=== PATIENT | female | born 1955 | race Caucasian/White ===

== ENCOUNTER 2016-11-11 14:53 | Inpatient (IN) | payer OTHER ==
[2016-11-11] VITALS (9 sets, daily range): BP systolic 105–144; BP diastolic 59–79; PULSE 51–83; RESP 12–18; O2SAT 100
[~2016-11-11] VITALS: Ht 170.2 cm; Wt 106.6 kg
[2016-11-11 16:11] LABS: APPEARANCE,URINE CLEAR (CLEAR,HAZY); COLOR,URINE STRAW (YELLOW)
[2016-11-11 16:12] LABS: OCCULT BLOOD,URINE NEGATIVE (NEGATIVE); PH,URINE 5.5 (5.0-8.0); UROBILINOGEN,URINE NORMAL (NORMAL)
[2016-11-11 17:04] LABS: BASOPHILS % (AUTO) 0.8 % (0-3); EOSINOPHILS % (AUTO) 0.8 % (0-5); MONOCYTES % (AUTO) 7.8 % (4-12); Mean Corpuscular Hemoglobin 17.5 pg (27.0-35.0); NEUTROPHILS % (AUTO) 65.9 % (40-74); Platelet Count 449 bil/L (150-400)
[2016-11-11 17:08] LABS: INR 0.95 ratio
[2016-11-11] MEDS ORDERED: LidocaineVisc 2%:Antacid 1:1 10 mL Syringe PO ONE (17:10)
[2016-11-11] MEDS ORDERED: 0.9% Sodium Chloride 250 ML IV STA (17:14)
[2016-11-11] MEDS ORDERED: Alum-Mag Hydrox-Simeth 30 mL Suspension PO PRN (17:15)
[2016-11-11] MEDS ORDERED: Ondansetron 2 mg/mL 2 mL Inj IVPUSH PRN ×2 (17:15→19:45)
[2016-11-11] MEDS ORDERED: Pantoprazole Inj 80 MG, Pharmacy To Mix 1 EA in 0.9% Sodium Chloride 80 ML IV ONE ×2 (17:25)
[2016-11-11] MEDS ORDERED: Pantoprazole 4 mg/mL 10 mL Inj IVPUSH ONE (17:25)
--- NOTE | 2016-11-11 17:29 | ED.REPORT ---
HPI-General Illness Date of Service Nov 11, 2016 ED Provider: Eliseo Nguyễn MD Patient is a 61 year old female who presents to the ED complaining of intermittent epigastric abdominal pain for the past 8 months. She also complains of feeling fatigued, having increased stress, constipation, one bowel movement that was black/tarry and pain that radiates into her back. Patient denies hematochezia or lightheadedness. She states that her pain is sharp and burning that is occasionally brought on by eating and stress. Patient reports that she has been taking Advil for her chronic back pain but has not increased her dose and she does not take it daily. The patient reports that she has been seen at and was started on Pantoprazole but her hemoglobin has dropped from 6.8 to 5.3 (three days ago). She also had an abdominal ultrasound that was unremarkable. Nursing Notes Stated Complaint: LAB RESULTS/SENT FROM DOC Chief Complaint: General Complaint Nursing Notes Reviewed: Yes Allergies: Coded Allergies: latex (Verified Allergy, Severe, WELTS, RASH, 11/11/16) Penicillins (Verified Allergy, Mild, MILD RASH, 11/11/16) Scheduled Cholecalciferol (Vitamin D3) (Vitamin D3) 2,000 Unit Tablet 2,000 UNIT PO QAM Mv,Ca,Min/FA/Herbal Comp #223 ([place] Mood & Memory Caplet) 400 Mcg Tablet 400 MCG PO QAM [place]-3/Dha/Epa/Fish Oil (Fish Oil 1,000 mg Softgel) 1 Each Capsule 1 EACH PO QAM Pantoprazole DR (Pantoprazole DR) 40 Mg Tablet.dr 40 MG PO BIDWM Scheduled PRN Ibuprofen (Ibuprofen) 200 Mg Capsule 400 MG PO DAILY PRN PRN BACK PAIN Loratadine (Claritin) 10 Mg Capsule 10 MG PO DAILY PRN PRN ALLERGIES General Time Seen by MD: 16:08 Chief Complaint Abdominal pain Hx Obtained From: Patient Arrived By: Walk-in Sudden in Onset?: No Onset Occurred: More than a week ago... (>6 months) Symptom Duration: Intermittent Location: : Abdomen Quality: Burning, Painful Recent Healthcare: Recent doctor visit Similar Sx Previous: Yes Past Medical History Past Medical History chronic back pain Smoking History Unknown if Ever Smoker Social History Other Social History: Good social support Ambulatory Status Independent Review of Systems Full Review of Systems Constitutional: Reports: Fatigue, Denies: Chills GI: Reports: Abdominal pain, Bloody/tarry stool, Constipation, Denies: Diarrhea, Hematochezia, Vomiting Musculoskeletal: Reports: Back pain Neurologic: Denies: Lightheaded Psychiatric: Reports: Stress Complete sys rev & neg: except as marked. Physical Exam Vital Signs Vital Signs Date Time Temp Pulse Resp B/P Pulse Ox O2 Delivery O2 Flow Rate FiO2 11/11/16 15:03 37.4 83 12 144/76 100 Room Air Initial VS: Reviewed General/Constitutional: Awake, Alert, No acute distress Head / Eyes: Atraumatic, Normocephalic, PERRL, EOMI mildly pale conjunctiva Respiratory / Chest: Atraumatic, Breath sounds NL, Breath sounds = bilat, No respiratory distress Cardiovascular: Heart rate NL, Regular rhythm, Heart sounds NL, No gallop, No murmurs, No rubs Abdomen: Atraumatic, Soft, Non-tender, No distention Lower Extremity / Pelvis / MS: Atraumatic, Full range of motion, No swelling, Non-tender Skin: Atraumatic, Color NL, No rash, Warm, Dry Rectum / Perineum: No gross blood normal brown stool present in rectal vault guaiac positive Neurologic: Oriented X3, Speech NL Psychiatric: Affect NL, Mood NL Interpretation & Diagnostics Lab Results Interpretation Result Diagram: 11/11/16 2255 11/11/16 1640 Test 11/11/16 15:55 11/11/16 16:40 11/11/16 17:01 Urine Color Straw (YELLOW) Urine Appearance Clear (CLEAR,HAZY) Urine pH 5.5 (5.0-8.0) Urine Specific [place] 1.010 (1.003-1.035) Urine Protein Negativemg/dL (NEG,TRACE) Urine Glucose (UA) Negativemg/dL (NEGATIVE) Urine Ketones Negativemg/dL (NEGATIVE) Urine Occult Blood Negative (NEGATIVE) Urine Nitrite Negative (NEGATIVE) Urine Bilirubin Negative (NEGATIVE) Urine Urobilinogen Normalmg/dL (NORMAL) Urine Leukocyte Esterase Small (NEGATIVE) Urine RBC 0-2/hpf (0-2) Urine WBC 0-5/hpf (0-5) Urine Epithelial Cells Few/hpf (NONE-MOD) Urine Crystals None seen (NONE SEEN) Urine Bacteria Few/hpf (NONE-FEW) Urine Hyaline Casts None/lpf (NONE) Urine Granular Casts None seen (NONE SEEN) Urine Waxy Casts None seen (NONE SEEN) Urine Red Blood Cell Casts None seen (NONE SEEN) Urine White Blood Cell Casts None seen (NONE SEEN) Urine Mucus None seen (None Seen) Urine Trichomonas None seen (NONE SEEN) Urine Yeast None (NONE SEEN) Urinalysis Comment None Urine Culture Reflexed Indicated Neutrophils (%) (Auto) 65.9% (40-74) Lymphocytes (%) (Auto) 24.5% (14-46) Monocytes (%) (Auto) 7.8% (4-12) Eosinophils (%) (Auto) 0.8% (0-5) Basophils (%) (Auto) 0.8% (0-3) Prothrombin Time 10.2sec (8.1-12.5) Prothromb Time International Ratio 0.95ratio Activated Partial Thromboplast Time 21.7sec (22.8-33.0) Sodium Level 136mEq/L (134-144) Potassium Level 4.4mEq/L (3.5-5.2) Chloride Level 102mEq/L (97-108) Carbon Dioxide Level 22mmol/L (18-29) Blood Urea Nitrogen 19mg/dL (8-27) Creatinine 0.51mg/dL (0.57-1.00) Estimat Glomerular Filtration Rate 176mL/min (>59) Glucose Level 98mg/dL (60-99) Calcium Level 9.0mg/dL (8.5-10.1) Total Bilirubin 0.2mg/dL (0.0-1.2) Aspartate Amino Transf (AST/SGOT) 14U/L (0-50) Alanine Aminotransferase (ALT/SGPT) 12U/L (0-32) Alkaline Phosphatase 65U/L (25-165) Troponin T < 0.010ug/L (0.0-0.011) Total Protein 6.9g/dL (6.4-8.4) Albumin 4.0g/dL (3.4-5.0) Hold [place] Top Tube Received (Received) Re-Eval/Medical Decision Med Decision/Clinical Course Summary, the patient is a 61-year-old female with chronic back pain for which she takes NSAIDs presents to the emergency department with declining hemoglobin level in the setting of burning epigastric abdominal pain and one "black tarry" stool several days ago. Upon arrival in the emergency department the patient is afebrile hemodynamically stable but she appears pale. Rectal examination reveals firm/ brown stool that is guaiac positive. She was noted to have tenderness in the epigastrium. The patient's presentation was concerning for bleeding gastric ulcer or duodenal ulcer. 2 large-bore IVs were obtained and blood was sent for type and screen. She was treated with a GI cocktail. Laboratory studies were notable as below: CBC notable for a hemoglobin of 5.2, hematocrit of 19.6, both decreased from prior CMP unremarkable Coag studies are normal Urinalysis unconvincing for UTI At this time patient has no peritoneal findings on abdominal examination and I do not feel that any imaging studies are immediately indicated to look for an acute surgical process or perforated ulcer. I highly suspect the patient's bleeding is related to upper GI source and likely peptic ulcer disease. She was started on pantoprazole bolus and infusion. She initially refused but transfusion though after further discussion she consented to receive 2 units of PRBCs. She remained hemodynamically stable in the emergency department. I consult the GI who evaluated the patient at the bedside. She will be taken for endoscopy later tonight or tomorrow morning. She was discussed with the hospitalist accepted for further management. Time of Eval: 17:26 Re-Evaluation/Progress Note: Discussed results and plan for admit. Patient understands and agrees to plan. She is currently refusing a blood transfusion. All questions were addressed. Consultation #1: Referral / Consult Name: Carlitos Chung MD Consulted With: On-call physician (GI) Call Returned at: 17:20 Head Of Academic Technology: Will see patient, Agrees with eval, Agrees with plan Note: Consult with Dr. Chung, who recommends infusion and will consult Consultation #2: Referral / Consult Name: Bess Dixon MD Consulted With: Hospitalist Call Returned at: 17:34 Head Of Academic Technology: Agrees with eval, Agrees with plan, Accepts admit Counseled Regarding: Diagnosis, Lab results, Need for admission Discharge & Departure Primary Impression: Upper GI bleed Additional Impressions: Epigastric pain Severe anemia Bloody stool NSAID long-term use Transfusion of blood during current hospitalization Disposition: ADMITTED TO HOSPITAL Discharge Condition All VS Reviewed: Yes Condition: Stable Referrals: NOPCP (PCP) Crit Care Except Billable Proc Time Spent: 75-104 minutes Services Performed: Patient management by me, Time spent at bedside, Reviewing test results, Discussing patient care, Documentation in record Critical Care Notes: Arranging blood transfusion, discussions with GI, discussions with patient/hospitalist, management of significant upper GI bleed Scribkarishma Attestation Portions of this note were transcribed by Jolanta Valderrama. I, Dr. Nguyễn personally performed the history, physical exam and medical decision-making; I reviewed and confirmed the accuracy of the information in the transcribed note. Signed by: Pierre Hernandez, 11/11/16 Eliseo Nguyễn MD Nov 11, 2016 17:29 Marianela Valderrama Nov 11, 2016 17:36 Eliseo Nguyễn MD Nov 11, 2016 17:29 Marianela Valderrama Nov 11, 2016 17:36
[2016-11-11] MEDS ORDERED: 0.9% Sodium Chloride 1,000 ML IV ONE (17:35)
[2016-11-11] MEDS ORDERED: OMEG-38 PO (19:42)
[2016-11-11] MEDS ORDERED: LORA10CA PO (19:42)
[2016-11-11] MEDS ORDERED: IBUP200C PO (19:42)
[2016-11-11] MEDS ORDERED: CHOL200025 PO (19:42)
[2016-11-11] MEDS ORDERED: PANT40TA3 PO (19:42)
[2016-11-11] MEDS ORDERED: MV,C400T3 PO (19:42)
--- NOTE | 2016-11-11 19:54 | PCM.HPMED ---
Subjective Date of Service Nov 11, 2016 Primary Provider: Admitting Physician: Vega Vang MD Primary Care Physician: Nopcp Attending Physician: Vega Vang MD Admit Status: From the Emergency Department, Full Admit, [facility] Telemetry Chief Complaint: Severe anemia History of Present Illness: This is a 61-year-old female who over the past 8 weeks or so he has been feeling more fatigued. He denies any chest pain or shortness of breath or lightheadedness. She does admit to however having some upper abdominal cramping at times. She's had some mild nausea but no vomiting. Has had no alteration in her bowel movements. She denies taking any nonsteroidal anti-inflammatories however recently she's been taking Petra-Clute she saw her primary care provider recently approximately a week or so ago and did have abdominal ultrasound which was negative per patient's report. He did have a hematocrit hemoglobin checked and she was told it was it was repeated and came back low again and was sent into the emergency room for further evaluation. She has no history of any GI bleeding. Review of Systems: She denies any fevers chills cough all other review of systems are reviewed and are negative except for as in history of present illness. 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 Hx Alcohol Use: Yes (rare) Hx Substance Use: No Smoking Status: Former Smoker (17 years ago), Unknown if Ever Smoker Living Arrangement: Alone Exam Vital Signs Vital Sign - Last Date Time Temp Pulse Resp B/P Pulse Ox O2 Delivery O2 Flow Rate FiO2 11/11/16 19:34 37.1 80 18 111/64 100 Room Air Exam Constitutional: Middle-aged female in no acute distress Head: Normocephalic atraumatic Eyes: PERRLA BCC EOMI Mouth: No lesions Neck carotids 2+ over 4 without bruits Chest: Clear to auscultation Cor: Regular rate and rhythm S1-S2 without murmur Abdomen: Soft nontender bowel sounds present Extremities: No pedal edema Psychological: Mood and affect are appropriate Skin: No rashes Neuro: Alert and oriented 3, motor strength is intact bilaterally Rectal exam per ER M.D. heme-positive brown stool present in rectal vault Lab and Diagnostics Labs Laboratory Tests 72 Hours Test 11/11/16 15:55 11/11/16 16:40 11/11/16 17:01 Urine Color Straw (YELLOW) Urine Appearance Clear (CLEAR,HAZY) Urine pH 5.5 (5.0-8.0) Urine Specific [place] 1.010 (1.003-1.035) Urine Protein Negativemg/dL (NEG,TRACE) Urine Glucose (UA) Negativemg/dL (NEGATIVE) Urine Ketones Negativemg/dL (NEGATIVE) Urine Occult Blood Negative (NEGATIVE) Urine Nitrite Negative (NEGATIVE) Urine Bilirubin Negative (NEGATIVE) Urine Urobilinogen Normalmg/dL (NORMAL) Urine Leukocyte Esterase Small (NEGATIVE) Urine RBC 0-2/hpf (0-2) Urine WBC 0-5/hpf (0-5) Urine Epithelial Cells Few/hpf (NONE-MOD) Urine Crystals None seen (NONE SEEN) Urine Bacteria Few/hpf (NONE-FEW) Urine Hyaline Casts None/lpf (NONE) Urine Granular Casts None seen (NONE SEEN) Urine Waxy Casts None seen (NONE SEEN) Urine Red Blood Cell Casts None seen (NONE SEEN) Urine White Blood Cell Casts None seen (NONE SEEN) Urine Mucus None seen (None Seen) Urine Trichomonas None seen (NONE SEEN) Urine Yeast None (NONE SEEN) Urinalysis Comment None Urine Culture Reflexed Indicated White Blood Count 5.9th/mm3 (3.8-10.1) Red Blood Count 2.97mil/mm3 (3.90-5.20) Hemoglobin 5.2g/dL (12.0-15.6) Hematocrit 19.6% (35.0-46.0) Mean Corpuscular Volume 66.0fL (81-100) Mean Corpuscular Hemoglobin 17.5pg (27.0-35.0) Mean Corpuscular Hemoglobin Concent 26.5% (32.0-37.0) Red Cell Distribution Width 18.8% (12.3-15.4) Platelet Count 449bil/L (150-400) Neutrophils (%) (Auto) 65.9% (40-74) Lymphocytes (%) (Auto) 24.5% (14-46) Monocytes (%) (Auto) 7.8% (4-12) Eosinophils (%) (Auto) 0.8% (0-5) Basophils (%) (Auto) 0.8% (0-3) Prothrombin Time 10.2sec (8.1-12.5) Prothromb Time International Ratio 0.95ratio Sodium Level 136mEq/L (134-144) Potassium Level 4.4mEq/L (3.5-5.2) Chloride Level 102mEq/L (97-108) Carbon Dioxide Level 22mmol/L (18-29) Blood Urea Nitrogen 19mg/dL (8-27) Creatinine 0.51mg/dL (0.57-1.00) Estimat Glomerular Filtration Rate 176mL/min (>59) Glucose Level 98mg/dL (60-99) Calcium Level 9.0mg/dL (8.5-10.1) Total Bilirubin 0.2mg/dL (0.0-1.2) Aspartate Amino Transf (AST/SGOT) 14U/L (0-50) Alanine Aminotransferase (ALT/SGPT) 12U/L (0-32) Alkaline Phosphatase 65U/L (25-165) Total Protein 6.9g/dL (6.4-8.4) Albumin 4.0g/dL (3.4-5.0) Hold Brown Top Tube Received (Received) Result Diagram: 11/11/16 1640 11/11/16 1640 X-Rays, CTs and MRIs PROCEDURE: US ABDOMEN INDICATIONS: PEPTIC ULCER DISEASE TECHNIQUE: Real-time scanning was performed of the abdominal and retroperitoneal organs, with image documentation. COMPARISON: None. FINDINGS: Liver length: 16.09 cm Gallbladder Wall Thickness: 2 mm CBD: 3.70 mm Spleen length: 11.91 cm Right kidney length: 10.38 cm Left kidney length: 10.95 cm Aorta(Proximal): 2.69 cm Aorta(Mid): 2.47 cm Aorta(Distal): 1.20 cm Liver: Liver is diffusely increased in echogenicity. No focal hepatic abnormalities identified. Normal hepatic size. Gallbladder: No gallstones identified. Normal gallbladder wall. No pericholecystic fluid. Negative sonographic Swan sign. Biliary ducts: Intrahepatic bile ducts are non-dilated. Extrahepatic bile duct caliber is normal. Normal is 6-7 mm or less in diameter, or 10 mm or less post-cholecystectomy. Pancreas: Not well-seen. Spleen: Spleen is normal in size and homogeneous in echotexture. Kidneys: Kidneys are normal in size and echotexture. No hydronephrosis or nephrolithiasis. No solid masses. Aorta: Visualized aorta is normal in caliber at less than 3 cm. Iliacs: Proximal common iliac arteries are normal in caliber at less than 2.5 cm. IVC: Intrahepatic inferior vena cava is patent. Miscellaneous: No free abdominal fluid. IMPRESSION: 1. Increased hepatic echogenicity noted likely related to fatty infiltration of the liver but other sources of hepatocellular disease cannot be excluded. Recommend clinical correlation. Dictated by: Carmelo HARMON Interpreted: Miki Hernandez MD on 11/08/2016 at 10: 48 Approved by: Michele Hernandez M.D. on 11/08/2016 at 11:34 12-lead ECG Pending Assessment & Plan # Severe anemia with low MCV, subacute, present on admission -Patient requests not to have any blood transfusions in spite of her low hemoglobin. -Gastroenterology is aware and will prepare to do upper endoscopy tomorrow( given patient's epigastric symptoms) so nothing by mouth after midnight -We'll give Protonix 40 mg IV every 12 hours given that it is not severely acute will not place on IV Protonix drip -Check serial hematocrits # DVT prophylaxis -Use SCDs and not placed on subcutaneous prophylactic anticoagulation given GI bleed, acute # CODE STATUS -Focal Pain Evaluation: Adequate Pain Control GI Prophylaxis: Proton Pump Inhibitor VTE Prophylaxis Indicated: Contraindicated VTE Prophylaxis: SCDs Resuscitation Status: CPR: Attempt Resuscitation Time spent 60 minutes Bess Dixon MD Nov 11, 2016 19:54
[2016-11-11] MEDS ORDERED: PEG/Electrolytes 4,000 mL Solution PO ONE (20:00)
[2016-11-11] MEDS ORDERED: Pantoprazole Inj 40 MG in 0.9% Sodium Chloride 100 ML IV SCH (20:30)
--- NOTE | 2016-11-11 21:43 | NUR ---
Pt rec'd from emergency department, transferred to bed from [facility]. 2nd IV started for blood product administration. Critical H&H reported to Dr. Wright at 0940, at which pt she spoke to pt. Addendum: 11/12/16 at 0619 by DEBBIE IRWIN RN 3rd unit PRBCs transfusing for hgb 6.5. VSS this shift, pt denies pain/discomfort, golytely prep completed by 0000. Plan for EGD and possible colonoscopy this AM.
[2016-11-11 23:02] LABS: Mean Corpuscular Hemoglobin 18.8 pg (27.0-35.0)
[2016-11-12] VITALS (14 sets, daily range): BP systolic 102–135; BP diastolic 65–79; PULSE 64–97; RESP 16–18; O2SAT 97–100
[2016-11-12] MEDS: 0.9% Sodium Chloride 1,000 ML IV SCH ×2 (00:52→13:47)
[2016-11-12] MEDS ORDERED: Pantoprazole 4 mg/mL 10 mL Inj IVPUSH SCH (06:30)
--- NOTE | 2016-11-12 09:51 | PCM.PNMED ---
Subjective Date of Service Nov 12, 2016 Subjective Patient is a 61 yr old female with no significant past medical history who presents to the ED per recommendations of her PCP due to low hemoglobin and hematocrit. Patient notes that she has been feeling more fatigued over the past 8 weeks, in addition, she has been experiencing mid-epigastric pain intermittently. Today, patient state that she feels well overall. She denies headaches, visual changes, chest pain, SOB, nausea, vomiting, hematemesis, abdominal pain, melena and hematochezia. This morning, she is continuing to receive one unit of blood. She has received a total of 3 units PRBCs since admission. Overnight, patient states that she initially did not want to receive blood products. However, after speaking with school age teacher, Dr. Chung, she decided that she agreed to get blood in order to improve her H&H prior to EGD/ colonoscopy. Patient received 2 units overnight. She has been prepping for her procedures today. Exam Vital Signs Vital Sign - Last Date Time Temp Pulse Resp B/P Pulse Ox O2 Delivery O2 Flow Rate FiO2 11/12/16 08:10 37.0 77 16 133/74 97 Room Air Intake and Output 11/11/16 11/11/16 11/12/16 Cumulative From/Thru 15:00 23:00 07:00 11/11/16 15:03 - 11/12/16 06:14 Intake Total 1800 ml 5327 ml 7127 ml Output Total 1300 ml 1300 ml Balance 1800 ml 4027 ml 5827 ml Intake Oral 4000 ml 4000 ml IV Total 1500 ml 1027 ml 2527 ml Packed Cells 300 ml 300 ml 600 ml Output Urine Total 800 ml 800 ml Stool Total 500 ml 500 ml # Bowel Movements 2 2 Exam General: Patient laying comfortably in bed, AAOX3, not in acute distress, cooperative and pleasant. HEENT: head normocephalic and atraumatic, PERRLA, EOMI, no scleral icterus, noninjected conjunctiva Neck: neck supple, non-tender, no lymphadenopathy, trachea midline, no JVD CV: regular rate and rhythm, s1 and s2 heard, no murmur, radial pulses and pedal pulses 2+ and equal bilaterally, no rubs or gallops, no edema Lungs: Clear to auscultation bilaterally, no wheezes, rales or rhonchi, no increased work of breathing Abdomen: normoactive bowel sounds on 4Q, soft, non-distended, non-tender to palpation, no organomegally, Skin: warm and dry Musculoskeletal: 5/5 UE and LE strength bilaterally, full ROM bilaterally Neuro: Grossly neurologically intact, cranial nerves II through XII intact, no dyskinesia, dysmetria, or dysdiadochokinesia noted, sensation intact in extremities Psych: Normal mood and affect Lab and Diagnostics Result Diagram: 11/12/16 0855 11/11/16 1640 X-Rays, CTs and MRIs PROCEDURE: US ABDOMEN INDICATIONS: PEPTIC ULCER DISEASE TECHNIQUE: Real-time scanning was performed of the abdominal and retroperitoneal organs, with image documentation. COMPARISON: None. FINDINGS: Liver length: 16.09 cm Gallbladder Wall Thickness: 2 mm CBD: 3.70 mm Spleen length: 11.91 cm Right kidney length: 10.38 cm Left kidney length: 10.95 cm Aorta(Proximal): 2.69 cm Aorta(Mid): 2.47 cm Aorta(Distal): 1.20 cm Liver: Liver is diffusely increased in echogenicity. No focal hepatic abnormalities identified. Normal hepatic size. Gallbladder: No gallstones identified. Normal gallbladder wall. No pericholecystic fluid. Negative sonographic Swan sign. Biliary ducts: Intrahepatic bile ducts are non-dilated. Extrahepatic bile duct caliber is normal. Normal is 6-7 mm or less in diameter, or 10 mm or less post-cholecystectomy. Pancreas: Not well-seen. Spleen: Spleen is normal in size and homogeneous in echotexture. Kidneys: Kidneys are normal in size and echotexture. No hydronephrosis or nephrolithiasis. No solid masses. Aorta: Visualized aorta is normal in caliber at less than 3 cm. Iliacs: Proximal common iliac arteries are normal in caliber at less than 2.5 cm. IVC: Intrahepatic inferior vena cava is patent. Miscellaneous: No free abdominal fluid. IMPRESSION: 1. Increased hepatic echogenicity noted likely related to fatty infiltration of the liver but other sources of hepatocellular disease cannot be excluded. Recommend clinical correlation. Dictated by: Carmelo HARMON Interpreted: Miki Hernandez MD on 11/08/2016 at 10: 48 Approved by: Michele Hernandez M.D. on 11/08/2016 at 11:34 12-lead ECG Pending Assessment & Plan Patient is a 61 yr old female with no significant past medical history who presents to the ED per recommendations of her PCP due to low hemoglobin and hematocrit. Patient notes that she has been feeling more fatigued over the past 8 weeks, in addition, she has been experiencing mid-epigastric pain intermittently. She has been admitted for possible GI bleed. # Severe anemia with low MCV, subacute, present on admission -On admit H&H was 5.2/19.6 -Patient initially requested not to have any blood transfusions in spite of her low hemoglobin but later changed her mind and consented -Gastroenterology, Dr. Chung is aware and will do upper endoscopy today ( given patient's epigastric symptoms) as well as a colonoscopy -We'll give Protonix 40 mg IV every 12 hours given that it is not severely acute will not place on IV Protonix drip -Patient has received 3 units PRBCs since admission. Most current H&H this morning was 7.9/26.5 -Check serial Hemoglobin/Hematocrit q8h -Blood matched and crosstyped. Transfuse if Hgb < 7 # DVT prophylaxis -Use SCDs and not placed on subcutaneous prophylactic anticoagulation given GI bleed, acute # CODE STATUS -Full GI Prophylaxis: Proton Pump Inhibitor VTE Prophylaxis: SCDs Resuscitation Status: CPR: Attempt Resuscitation Attending Statement The patient was seen and examined together with Dr. Roach on 11/12/2016 and I agree with the history, exam and plan as outlined in the note above. . Sana Roach DO Nov 12, 2016 09:51 Vega Vang MD Nov 13, 2016 17:17
--- NOTE | 2016-11-12 12:55 | NUR ---
Off floor to Endo Pt off floor to Endo. Pt voided and SL. Report given to Endo RN. Care continues.
[2016-11-12] MEDS ORDERED: fentaNYL-PF 50 mCg/mL 2 mL Inj ONE (12:59)
--- NOTE | 2016-11-12 14:07 | PCM.ENDEGD ---
EGD Date of Service: Nov 12, 2016 Physician Carlitos Chung MD Pre Procedure Diagnosis: Anemia Post Procedure Dx & Findings: Hiatal hernia one and half centimeter deep cratered ulcer with surrounding inflammation. Procedure Esophagogastroduodenoscopy PROCEDURE IN DETAIL: After proper sedation, Olympus video endoscope was inserted into patient's mouth and esophagus was successfully intubated. Scope introduced esophagus. Esophagus showed normal shiny whitish mucosa consistent with squamous cell component. Z line was intact at 35 cm from the incisors. 5 cm hiatal hernia noted. Scope further events to the stomach. Stomach showed normal shiny mucosa with normal appearing rugae folds without any ulcer mass erosion except on the fundus body junction, there was a 1.5 cm deep cratered ulcer with surrounding inflammation. Biopsies were done on the edges of the ulcer. Cardia fundus body antrum pylorus were all visualized. Retroflexion was done. Stomach was easily inflated and deflatable using air. Scope further advanced to the distal duodenum. Duodenum revealed normal villous structures with normal appearing folds without any mass ulcer erosion. Impression Hiatal hernia Clean base deep ulcer as described above. Source of anemia. Recommendation Advanced diet as tolerated Switch to by mouth Protonix 40 twice a day EGD repeat in about 2 months. Consider anesthesia because she require quite a bit of sedation. Follow up in GI clinic 2 weeks after discharge. Avoid NSAIDs. Presedation Assessment Risks and Benefits Informed consent was obtained from the patient after all risks and benefits including but not limited to drug reaction, infection, pain, bleeding, perforation, as well as alternatives were discussed. Patient monitoring Continuous pulse oximetry, cardiac monitoring, blood pressure monitoring, IV access, and oxygen at 2L per nasal cannula. Periprocedural Fentanyl: Fentanyl 200mcg Incrementally Midazolam: Midazolam 10mg Incrementally Complications There were no periprocedural complications identified. Post Procedure Plan Post Procedure Recommendations 1. Restrict activities today. 2. Resume normal activities in the morning. 3. Resume medications. 4. GERD behavioral modification: - Avoid fatty, acidic, spicy, large meals - Do not lie down after meals - Do not eat or drink anything for at least 2 1/2 hours before going to bed at night - Discontinue tobacco and alcohol - Decrease or avoid caffeine - Avoid chocolate and mints - Decrease weight - Avoid aspirin and non steroidal anti-inflammatory agents (NSAID) such as Aleve, Advil, Mobic, Naproxen, Ibuprofen, etc 5. Add proton pump inhibitor. Take 30 minutes before 1st meal of the day. 6. Patient informed of normal post procedure side effects as bloating, drowsiness, blood streaking in the stool 7. If gastric biopsy reveal H.pylori, continue with appropriate treatment 8. If small bowel biopsy reveals celiac, continue with appropriate treatment 9. Please don't hesitate to call me with any questions Carlitos Chung MD Nov 12, 2016 14:07
--- NOTE | 2016-11-12 14:09 | PCM.ENDCOL ---
Colonoscopy Date of Service: Nov 12, 2016 Physician Carlitos Chung MD Pre Procedure Diagnosis: Screening Post Procedure Dx & Findings: Polyp hemorrhoids Procedure Colonoscopy PROCEDURE IN DETAIL: Prep adequate Withdrawal time 17 minutes After unremarkable rectal examination the Olympus video colonoscope was inserted patient's anal canal and was advanced to cecum. Landmarks were identified including the ileocecal valve and appendiceal orifice. Scope was withdrawn systematically. Visualized colonic mucosa showed healthy shiny mucosa with normal healthy-appearing vasculature. In the ascending colon, there was a 4-5 mm polyp which was removed completely using cold snare. In the rectum retroflexion was done which showed hemorrhoids. Anal canal was inspected carefully on the way out and hemorrhoids noted. Impression Polyp 1 status post complete removal Hemorrhoids Recommendation Repeat colonoscopy in 5 years Presedation Assessment Risks and Benefits Informed consent was obtained from the patient after all risks and benefits including but not limited to drug reaction, infection, pain, bleeding, perforation, as well as alternatives were discussed. Patient monitoring Continuous pulse oximetry, cardiac monitoring, blood pressure monitoring, IV access, and oxygen at 2L per nasal cannula. Complications There were no periprocedural complications identified. Post Procedure Plan Post Procedure Recommendations 1. Restrict activities today. 2. Resume normal activities in the morning. 3. Resume medications. 4. Patient informed of normal post procedure side effects as bloating, drowsiness, blood streaking in the stool. 5. average risk CRCS. If colon polyps come back as: -Hyperplastic- can repeat colonoscopy in 10 years -Tubular adenoma- repeat colonoscopy in 5 years -Tubulovillous/villous adenoma- repeat colonoscopy in 3 years -If any dysplasia- return to clinic as soon as possible 6. Please don't hesitate to call me with any questions. Carlitos Chung MD Nov 12, 2016 14:09
--- NOTE | 2016-11-12 14:58 | NUR ---
Back to [facility] Pt back from Endo, pt AOx3, pt denies N/V/D, pt requesting menu to order dinner. Pt friend bringing lunch.
--- NOTE | 2016-11-12 16:01 | NUR ---
Social Work: Initial Assessment / Multidisciplinary Rounds Data: See initial assessment. Patient is a 61 year old female who was admitted on 11/11/16 for bradycardia and dyspnea per H&P. Patient's insurance is [facility] and no PCP is listed for patient at this time. SW met with patient to discuss discharge planning. SW role explained. Patient informed SW that she lives alone in [place]. Patient considers her friend Joy Kaur to be her main source of support. Patient denied having a DPOA or AD and has declined SW offer for resources at this time. Patient confirms that she is I with all ADLs and care needs. Patient confirms that she drives. Patient denies having a hx of home health services or VA benefits. Upon discharge, patient states that she will transport herself home via POV. SW provided patient with a discharge planning checklist and encouraged to call with any questions or concerns. Phone number provided. Patient was discussed in morning rounds. No concerns were noted by staff or MD. SW will continue to follow for needs. Assessment: Patient is from home and will likely discharge home with no needs. Plan: Patient will discharge home when medically stable. Patient will provide her own transportation needs via POV. SW will continue to follow. SARABJIT Nova Addendum: 11/12/16 at 1619 by BERNARD NICKERSON Amended: Links added.
[2016-11-12] MEDS: Sucralfate 1,000 mg Tablet PO SCH ×2 (17:23→20:05)
[2016-11-12] MEDS: Pantoprazole 40 mg ER24 Tablet PO SCH (17:24)
--- NOTE | 2016-11-12 18:45 | PCM.CHPMED ---
Subjective Date of Service: Nov 12, 2016 Provider requesting consult: Bess Dixon MD Primary Physician: Admitting Physician: Vega Vang MD Primary Care Physician: Nopcp Attending Physician: Vega Vang MD Admit Status: From the Emergency Department Chief Complaint: Chief Complaint: Generalized weakness History of Present Illness: Teressa Sparks 61-year-old woman with a history of chronic back pain for which she takes NSAIDs referred to the emergency department for anemia, generalized weakness, and intermittent abdominal discomfort for the past 8 months. Associated symptoms include fatigue, and constipation. She reports epigastric discomfort that she describes as sharp and burning and occasionally related to eating and stress. She denies vomiting, hematemesis, chest pain, fever, and chills. She does note that she takes Advil for her back pain but has not increased the dose recently. The patient reports that she has been seen at and was started on Pantoprazole but her hemoglobin reportedly dropped from 6.8 to 5.3. An abdominal ultrasound was done at that time as well, which was unremarkable. In the ED, she was afebrile, hemodynamically stable with a H/H of 5.2/19.6 and was noted to appear pale. Stool was guaiac positive. CMP, PT/INR, and UA unremarkable. She was started on a protonix drip and admitted for further evaluation and management of upper GI bleed, now s/p 2 units of pRBCs. Review of Systems: Pertinent positives and negatives as above in HPI. Otherwise negative. PMH Past Medical History Chronic back pain Surgical History None Home Medications Cholecalciferol 2,000 UNIT PO QAM Mv,Ca,Min/FA/Herbal Comp 400 MCG PO QAM [place]-3/Dha/Epa/Fish Oil 1 EACH PO QAM Pantoprazole DR 40 MG PO BIDWM Ibuprofen 400 MG PO DAILY PRN BACK PAIN Loratadine 10 MG PO DAILY PRN ALLERGY Allergies: Coded Allergies: latex (Verified Allergy, Severe, WELTS, RASH, 11/11/16) Penicillins (Verified Allergy, Mild, MILD RASH, 11/11/16) Family History Family History Mother with a history of type 1 diabetes and coronary artery disease Father with a history of CABG somewhere at age 65 to 70 Social History 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 Hx Alcohol Use: Yes (social drinker )Alcoholic Drinks Per Day: 0Hx Substance Use: No (occ marijuana ) Smoking Status: Former Smoker Unknown if Ever Smoker Living Arrangement: with Family Alone Exam Vital Signs Vital Sign - Last Date Time Temp Pulse Resp B/P Pulse Ox O2 Delivery O2 Flow Rate FiO2 11/12/16 12:54 69 17 135/70 100 Room Air 11/12/16 12:07 37.1 Intake and Output 11/11/16 11/11/16 11/12/16 Cumulative From/Thru 15:00 23:00 07:00 11/11/16 15:03 - 11/12/16 06:14 Intake Total 1800 ml 5327 ml 7127 ml Output Total 1300 ml 1300 ml Balance 1800 ml 4027 ml 5827 ml Intake Oral 4000 ml 4000 ml IV Total 1500 ml 1027 ml 2527 ml Packed Cells 300 ml 300 ml 600 ml Output Urine Total 800 ml 800 ml Stool Total 500 ml 500 ml # Bowel Movements 2 2 General: Alert, Oriented X3 Eyes: Scleral Anicteric Mouth: Mucous Membr Moist/[place] Chest & Lungs: Clear to auscultation & percussion Cardiovascular: Regular Rate/Rhythm, No Murmurs/Rubs/Gallops Abdomen: Tender (mild epigastric tenderness), Non-distended, No masses Extremities: No cyanosis/clubbing/edma bilat Neurological: Grossly Neurologically Intact Lab and Diagnostics Labs Laboratory Tests Test 11/11/16 21:15 11/11/16 22:55 11/12/16 03:30 11/12/16 08:55 Hemoglobin 4.8g/dL (12.0-15.6) 5.8g/dL (12.0-15.6) 6.5g/dL (12.0-15.6) 7.9g/dL (12.0-15.6) Hematocrit 18.0% (35.0-46.0) 21.0% (35.0-46.0) 22.8% (35.0-46.0) 26.5% (35.0-46.0) Hepatitis C Antibody <0.1s/co ratio (0.0-0.9) White Blood Count 5.1th/mm3 (3.8-10.1) Red Blood Count 3.09mil/mm3 (3.90-5.20) Mean Corpuscular Volume 68.0fL (81-100) Mean Corpuscular Hemoglobin 18.8pg (27.0-35.0) Mean Corpuscular Hemoglobin Concent 27.6% (32.0-37.0) Red Cell Distribution Width 20.2% (12.3-15.4) Platelet Count 413bil/L (150-400) Test 11/12/16 11:50 Hemoglobin 7.7g/dL (12.0-15.6) Hematocrit 25.9% (35.0-46.0) Microbiology 11/11/16 Urine Culture - No growth to date Result Diagram: 11/12/16 1150 11/11/16 1640 Assessment & Plan Assessment 61-year-old woman with a history of chronic back pain for which she takes NSAIDs referred to the emergency department from Urgent Care for anemia associated with generalized weakness and intermittent abdominal discomfort for the past 8 months. Acute blood loss anemia secondary to upper GI bleed likely secondary to NSAID use - H/H 5.2/19.6 at presentation, stool guaiaic postive. Patient transfused 3 units pRBCs - Hemodynamically stable and maintaining post transfusion H/H, this morning 7.9/ 26.5 - EGD on 11/12 significant for hiatal hernia and 1.5cm deep cratered ulcer with surrounding inflammation likely source for bleed. RECOMMENDATIONS: - Advanced diet as tolerated - Switch to by mouth Protonix 40 twice a day - Repeat EGD in about 2 months. Consider anesthesia because she require quite a bit of sedation. - Follow up in GI clinic 2 weeks after discharge. - Avoid NSAIDs. - GERD behavioral modification: - Avoid fatty, acidic, spicy, large meals - Do not lie down after meals - Do not eat or drink anything for at least 2 1/2 hours before going to bed at night - Discontinue tobacco and alcohol - Decrease or avoid caffeine - Avoid chocolate and mints - Decrease weight - Avoid aspirin and non steroidal anti-inflammatory agents (NSAID) such as Aleve, Advil, Mobic, Naproxen, Ibuprofen, etc - Await biopsies. If gastric biopsy reveal H.pylori, continue with appropriate treatment . Problems: Pain Evaluation: Adequate Pain Control GI Prophylaxis: Proton Pump Inhibitor VTE Prophylaxis Indicated: Contraindicated VTE Prophylaxis: SCDs Resuscitation Status: CPR: Attempt Resuscitation Capri Garza DO Nov 12, 2016 13:09
[2016-11-13] VITALS: BP 108/68; PULSE 64; RESP 18; O2SAT 96
[2016-11-13 03:34] VITALS: BP 110/72; PULSE 60; RESP 18; O2SAT 99
[2016-11-13] MEDS: Sucralfate 1,000 mg Tablet PO SCH ×2 (03:34→09:29)
--- NOTE | 2016-11-13 04:35 | NUR ---
Pain / Ambulation / Tele DC'd Pt c/o mild abdomen pain, medicated with PO Tylenol and scheduled Carafate X 2 doses and pain resolved. Pt denies diarrhea or nausea. Pt up ambulating in hallways independently, gait steady, denies dizziness or shortness of breath while up. No c/o chest pain, Tele SR without ectopy. MD notified of stable Telemetry and new order to discontinue Tele around midnight. VS stable and afebrile. Pt looking forward to possibly going home today. Addendum: 11/13/16 at 0437 by BRYAN JETER RN No s/sx of bleeding all night.
[2016-11-13 04:40] LABS: Mean Corpuscular Hemoglobin 20.9 pg (27.0-35.0); Mean Corpuscular Volume 72.6 fL (81-100)
[2016-11-13 09:24] VITALS: BP 113/65; PULSE 77; RESP 16; O2SAT 99
[2016-11-13] MEDS: Pantoprazole 40 mg ER24 Tablet PO SCH (09:29)
--- NOTE | 2016-11-13 11:03 | PCM.PNMED ---
Subjective Date of Service Nov 13, 2016 Subjective No bowel movement. H&H stable. Exam Vital Signs Vital Sign - Last Date Time Temp Pulse Resp B/P Pulse Ox O2 Delivery O2 Flow Rate FiO2 11/13/16 09:24 37.1 77 16 113/65 99 Room Air Intake and Output 11/12/16 11/12/16 11/13/16 Cumulative From/Thru 15:00 23:00 07:00 11/11/16 15:03 - 11/13/16 06:06 Intake Total 975 ml 400 ml 1240 ml 9842 ml Output Total 650 ml 1950 ml Balance 975 ml -250 ml 1240 ml 7892 ml Intake Oral 400 ml 1240 ml 5640 ml IV Total 500 ml 3127 ml Packed Cells 475 ml 1075 ml Output Urine Total 650 ml 1450 ml Stool Total 500 ml # Voids 2 2 # Bowel Movements 1 3 Exam Patient is alert and oriented comfortable Head and neck no icterus Lungs clear Cardia vascular regular rate and rhythm normal S1 and S2 Abdomen soft nontender nondistended with normoactive bowel sounds Extremities no pitting edema of the ankles Skin shows no jaundice Lab and Diagnostics Result Diagram: 11/13/16 0305 11/13/16 0305 X-Rays, CTs and MRIs PROCEDURE: US ABDOMEN INDICATIONS: PEPTIC ULCER DISEASE TECHNIQUE: Real-time scanning was performed of the abdominal and retroperitoneal organs, with image documentation. COMPARISON: None. FINDINGS: Liver length: 16.09 cm Gallbladder Wall Thickness: 2 mm CBD: 3.70 mm Spleen length: 11.91 cm Right kidney length: 10.38 cm Left kidney length: 10.95 cm Aorta(Proximal): 2.69 cm Aorta(Mid): 2.47 cm Aorta(Distal): 1.20 cm Liver: Liver is diffusely increased in echogenicity. No focal hepatic abnormalities identified. Normal hepatic size. Gallbladder: No gallstones identified. Normal gallbladder wall. No pericholecystic fluid. Negative sonographic Swan sign. Biliary ducts: Intrahepatic bile ducts are non-dilated. Extrahepatic bile duct caliber is normal. Normal is 6-7 mm or less in diameter, or 10 mm or less post-cholecystectomy. Pancreas: Not well-seen. Spleen: Spleen is normal in size and homogeneous in echotexture. Kidneys: Kidneys are normal in size and echotexture. No hydronephrosis or nephrolithiasis. No solid masses. Aorta: Visualized aorta is normal in caliber at less than 3 cm. Iliacs: Proximal common iliac arteries are normal in caliber at less than 2.5 cm. IVC: Intrahepatic inferior vena cava is patent. Miscellaneous: No free abdominal fluid. IMPRESSION: 1. Increased hepatic echogenicity noted likely related to fatty infiltration of the liver but other sources of hepatocellular disease cannot be excluded. Recommend clinical correlation. Dictated by: Carmelo Falcon [facility] Interpreted: Miki Hernandez MD on 11/08/2016 at 10: 48 Approved by: Michele Hernandez M.D. on 11/08/2016 at 11:34 12-lead ECG Pending Assessment & Plan 61-year-old woman with a history of chronic back pain for which she takes NSAIDs referred to the emergency department from Urgent Care for anemia associated with generalized weakness and intermittent abdominal discomfort for the past 8 months. Hemoglobin stable. EGD showed a 1.5 cm creating ulcer at the junction of fundus and the body. Biopsy still pending. Tolerating diet. - Repeat EGD in about 2 months because the location of the ulcer seems a little unusual. Consider anesthesia because she require quite a bit of sedation. - Follow up in GI clinic 2 weeks after discharge. - Avoid NSAIDs nd non steroidal anti-inflammatory agents (NSAID) such as Aleve , Advil, Mobic, Naproxen, Ibuprofen, etc - GERD behavioral modification: - Avoid fatty, acidic, spicy, large meals - Do not lie down after meals - Do not eat or drink anything for at least 2 1/2 hours before going to bed at night - Discontinue tobacco and alcohol - Decrease or avoid caffeine - Avoid chocolate and mints - Decrease weight - Await biopsies. If gastric biopsy reveal H.pylori, continue with appropriate treatment. - GI will sign off. GI Prophylaxis: Proton Pump Inhibitor VTE Prophylaxis: SCDs Resuscitation Status: CPR: Attempt Resuscitation Carlitos Chung MD Nov 13, 2016 11:03
--- NOTE | 2016-11-13 11:25 | PCM.DIMED ---
Sana Roach DO 11/13/16 0700: Discharge Instructions Date of Service Nov 13, 2016 Dates of Hospitalization Nov 11, 2016 at 19:05 Discharge Diagnosis Discharge Diagnosis Severe anemia with low MCV, subacute, present on admission Clean base deep ulcer on the fundus body junction of the stomach. Source of anemia. Hiatal hernia Ascending Colon Polyp 1 status post complete removal Hemorrhoids Diet Discharge Diet: No restrictions Activity Discharge Activity: No restrictions Call your provider Call your provider for: Fever or Chills, Shortness of breath, Bleeding, Chest pain, Vomitting, Excessive diarrhea, Weakness (unilateral) Patient Instructions Patient Instructions You presented to the hospital per recommendations of your primary care doctor because you were found to have low hemoglobin/ hematocrit. You denied any symptoms of bleeding but have noticed that when you eat or drink certain foods, you experience abdominal pain. Because your hemoglobin was low at 5.2 when you presented, you were transfused 3 units of blood. We consulted gastroenterology , Dr. Chung, who did an endoscopy and colonoscopy. He found that there was a 1.5 cm deep cratered ulcer with surrounding inflammation on the fundus body junction of the stomach, which is the likely source of your bleed, causing anemia. He also found a Hiatal hernia, Ascending Colon Polyp 1 that was completely removed and Hemorrhoids. He also took samples during the endoscopy to check and see if there is anything concerning with the pathology or if there is any bacteria that may be causing the ulcers. We should find out more about those results in the coming week. He suggested that we give Protonix 40 mg by mouth twice a day, which you will continue when you are discharged. Protonix, otherwise known as pantoprazole is a proton pump inhibitor that decreases the amount of acid produced in the stomach. He also suggested that we give Cerafate 1 gram 4 times a day. Cerafate, otherwise known as sucralfate, is a medicine that forms a coating over ulcers to protect the area from further injury.Throughout your hospital stay, we monitored your blood counts, Hemoglobin and Hematocrit. They remained stable overnight until discharge. At home, you will continue to take Protonix 40 mg twice a day and Cerafate 1 g by mouth, 4 times daily. You will follow up at the GI clinic 2 weeks after discharge. You will likely get a repeat endoscopy in about 2 months. In addition , you will get a Repeat colonoscopy in [address] Chung, here are some Recommendations for your acid reflux: - Avoid fatty, acidic, spicy, large meals - Do not lie down after meals - Do not eat or drink anything for at least 2 1/2 hours before going to bed at night - Discontinue tobacco and alcohol - Decrease or avoid caffeine - Avoid chocolate and mints - Decrease weight - Avoid Aspirin Non steroidal anti-inflammatory agents (NSAID) such as Aleve, Advil, Mobic, Naproxen, Ibuprofen, etc Follow-up plan You will follow up at the GI clinic 2 weeks after discharge. You will likely get a repeat endoscopy in about 2 months. In addition, you will get a Repeat colonoscopy in 5 years. Follow-up with your PCP in 2 weeks. Follow-up Provider: Carlitos Chung MD Follow-up with PCP in: 2 weeks Provider: Rachana Bolden PA-C Follow-up in: 2 weeks Vega Vang MD 11/13/16 1717: Discharge Instructions Attending's Statement The patient was seen and examined together with Dr. Roach on 11/13/2016 and I agree with the history, exam and plan as outlined in the note above. . Sana Roach DO Nov 13, 2016 07:00 Vega Vang MD Nov 13, 2016 17:17
[2016-11-13] MEDS ORDERED: PANT40TA3 PO (11:27)
[2016-11-13] MEDS ORDERED: SUCR1TAB30 PO (11:27)
--- NOTE | 2016-11-13 12:57 | PCM.DC.MED ---
Discharge Summary Date of Service Nov 13, 2016 Dates of Hospitalization Date of Hospital Admission Nov 11, 2016 at 19:05 Date of Discharge: Nov 13, 2016 Providers: Admitting Physician: Vega Vang MD Primary Care Physician: Nopcp Attending Physician: Vega Vang MD Diagnosis at Time of Discharge Diagnosis at Time of Discharge Severe anemia with low MCV, subacute, present on admission Clean base deep ulcer on the fundus body junction of the stomach. Source of anemia. Hiatal hernia Ascending Colon Polyp 1 status post complete removal Hemorrhoids Procedures XRay, CTs & MRIs PROCEDURE: US ABDOMEN INDICATIONS: PEPTIC ULCER DISEASE TECHNIQUE: Real-time scanning was performed of the abdominal and retroperitoneal organs, with image documentation. COMPARISON: None. FINDINGS: Liver length: 16.09 cm Gallbladder Wall Thickness: 2 mm CBD: 3.70 mm Spleen length: 11.91 cm Right kidney length: 10.38 cm Left kidney length: 10.95 cm Aorta(Proximal): 2.69 cm Aorta(Mid): 2.47 cm Aorta(Distal): 1.20 cm Liver: Liver is diffusely increased in echogenicity. No focal hepatic abnormalities identified. Normal hepatic size. Gallbladder: No gallstones identified. Normal gallbladder wall. No pericholecystic fluid. Negative sonographic Swan sign. Biliary ducts: Intrahepatic bile ducts are non-dilated. Extrahepatic bile duct caliber is normal. Normal is 6-7 mm or less in diameter, or 10 mm or less post-cholecystectomy. Pancreas: Not well-seen. Spleen: Spleen is normal in size and homogeneous in echotexture. Kidneys: Kidneys are normal in size and echotexture. No hydronephrosis or nephrolithiasis. No solid masses. Aorta: Visualized aorta is normal in caliber at less than 3 cm. Iliacs: Proximal common iliac arteries are normal in caliber at less than 2.5 cm. IVC: Intrahepatic inferior vena cava is patent. Miscellaneous: No free abdominal fluid. IMPRESSION: 1. Increased hepatic echogenicity noted likely related to fatty infiltration of the liver but other sources of hepatocellular disease cannot be excluded. Recommend clinical correlation. Dictated by: Carmelo HARMON Interpreted: Miki Hernandez MD on 11/08/2016 at 10: 48 Approved by: Michele Hernandez M.D. on 11/08/2016 at 11:34 Brief History [facility] 61-year-old woman with a history of chronic back pain for which she takes NSAIDs referred to the emergency department for anemia, generalized weakness, and intermittent abdominal discomfort for the past 8 months. Associated symptoms include fatigue, and constipation. She reports epigastric discomfort that she describes as sharp and burning and occasionally related to eating and stress. She denies vomiting, hematemesis, chest pain, fever, and chills. She does note that she takes Advil for her back pain but has not increased the dose recently. The patient reports that she has been seen at and was started on Pantoprazole but her hemoglobin reportedly dropped from 6.8 to 5.3. An abdominal ultrasound was done at that time as well, which was unremarkable. In the ED, she was afebrile, hemodynamically stable with a H/H of 5.2/19.6 and was noted to appear pale. Stool was guaiac positive. CMP, PT/INR, and UA unremarkable. She was started on a protonix drip and admitted for further evaluation and management of upper GI bleed, now s/p 2 units of pRBCs. Hospital Course Patient is a 61 yr old female with no significant past medical history who presents to the ED per recommendations of her PCP due to low hemoglobin and hematocrit. Patient notes that she has been feeling more fatigued over the past 8 weeks, in addition, she has been experiencing mid-epigastric pain intermittently. She was admitted for possible GI bleed. Patient underwent an endoscopy and colonoscopy. Findings include: 1.5 cm Clean base deep ulcer on the fundus body junction of the stomach, likely the source of anemia, a Hiatal hernia, Ascending Colon Polyp 1 status post complete removal and Hemorrhoids. Patient was started on PPI and sucralfate, which she will continue when discharged. H/H remained stable overnight. No signs of cute bleed prior to discharge. # Severe anemia with low MCV, subacute, present on admission, improved -On admit H&H was 5.2/19.6 -Patient initially requested not to have any blood transfusions in spite of her low hemoglobin but later changed her mind and consented -Gastroenterology, Dr. Chung is aware and performed an EGD as well as a colonoscopy on 11/12/16 -Findings include: 1.5 cm Clean base deep ulcer on the fundus body junction of the stomach, likely the source of anemia, a Hiatal hernia, Ascending Colon Polyp 1 status post complete removal and Hemorrhoids -Biopsy sampled were taken. Follow up with results as outpatient -Gave Protonix 40 mg IV every 12 hours given that it is not severely acute will not place on IV Protonix drip -Patient will be discharged with Protonix 40 mg by mouth twice a day and sucralfate 1 g every 6 hours daily -Patient has received 3 units PRBCs since admission. Most current H&H this morning was 7.9/27.6 -Checked serial Hemoglobin/Hematocrit q8h -Blood matched and crosstyped. Transfused if Hgb < 7 -Patient will follow up with GI in 2 weeks. She will undergo a repeat endoscopy in 2 months. # DVT prophylaxis -Use SCDs and not placed on subcutaneous prophylactic anticoagulation given GI bleed, acute # CODE STATUS -Full Exam Vital Signs (Last) Date Time Temp Pulse Resp B/P Pulse Ox O2 Delivery O2 Flow Rate FiO2 11/13/16 09:24 37.1 77 16 113/65 99 Room Air Exam General: Patient laying comfortably in bed, AAOX3, not in acute distress, cooperative and pleasant. HEENT: head normocephalic and atraumatic, PERRLA, EOMI, no scleral icterus, noninjected conjunctiva Neck: neck supple, non-tender, no lymphadenopathy, trachea midline, no JVD CV: regular rate and rhythm, s1 and s2 heard, no murmur, radial pulses and pedal pulses 2+ and equal bilaterally, no rubs or gallops, no edema Lungs: Clear to auscultation bilaterally, no wheezes, rales or rhonchi, no increased work of breathing Abdomen: normoactive bowel sounds on 4Q, soft, non-distended, non-tender to palpation, no organomegally, Skin: warm and dry Musculoskeletal: 5/5 UE and LE strength bilaterally, full ROM bilaterally Neuro: Grossly neurologically intact, cranial nerves II through XII intact, no dyskinesia, dysmetria, or dysdiadochokinesia noted, sensation intact in extremities Psych: Normal mood and affect Test 11/11/16 15:55 11/11/16 16:40 11/11/16 17:01 11/11/16 21:15 Urine Color Straw (YELLOW) Urine Appearance Clear (CLEAR,HAZY) Urine pH 5.5 (5.0-8.0) Urine Specific Porter 1.010 (1.003-1.035) Urine Protein Negativemg/dL (NEG,TRACE) Urine Glucose (UA) Negativemg/dL (NEGATIVE) Urine Ketones Negativemg/dL (NEGATIVE) Urine Occult Blood Negative (NEGATIVE) Urine Nitrite Negative (NEGATIVE) Urine Bilirubin Negative (NEGATIVE) Urine Urobilinogen Normalmg/dL (NORMAL) Urine Leukocyte Esterase Small (NEGATIVE) Urine RBC 0-2/hpf (0-2) Urine WBC 0-5/hpf (0-5) Urine Epithelial Cells Few/hpf (NONE-MOD) Urine Crystals None seen (NONE SEEN) Urine Bacteria Few/hpf (NONE-FEW) Urine Hyaline Casts None/lpf (NONE) Urine Granular Casts None seen (NONE SEEN) Urine Waxy Casts None seen (NONE SEEN) Urine Red Blood Cell Casts None seen (NONE SEEN) Urine White Blood Cell Casts None seen (NONE SEEN) Urine Mucus None seen (None Seen) Urine Trichomonas None seen (NONE SEEN) Urine Yeast None (NONE SEEN) Urinalysis Comment None Urine Culture Reflexed Indicated Neutrophils (%) (Auto) 65.9% (40-74) Lymphocytes (%) (Auto) 24.5% (14-46) Monocytes (%) (Auto) 7.8% (4-12) Eosinophils (%) (Auto) 0.8% (0-5) Basophils (%) (Auto) 0.8% (0-3) Prothrombin Time 10.2sec (8.1-12.5) Prothromb Time International Ratio 0.95ratio Activated Partial Thromboplast Time 21.7sec (22.8-33.0) Troponin T < 0.010ug/L (0.0-0.011) Hold Brown Top Tube Received (Received) Hepatitis C Antibody <0.1s/co ratio (0.0-0.9) Test 11/13/16 03:05 11/13/16 11:50 White Blood Count 4.5th/mm3 (3.8-10.1) Red Blood Count 3.58mil/mm3 (3.90-5.20) Mean Corpuscular Volume 72.6fL (81-100) Mean Corpuscular Hemoglobin 20.9pg (27.0-35.0) Mean Corpuscular Hemoglobin Concent 28.8% (32.0-37.0) Red Cell Distribution Width 22.2% (12.3-15.4) Platelet Count 356bil/L (150-400) Sodium Level 142mEq/L (134-144) Potassium Level 4.0mEq/L (3.5-5.2) Chloride Level 104mEq/L (97-108) Carbon Dioxide Level 23mmol/L (18-29) Blood Urea Nitrogen 9mg/dL (8-27) Creatinine 0.55mg/dL (0.57-1.00) Estimat Glomerular Filtration Rate 161mL/min (>59) Glucose Level 95mg/dL (60-99) Calcium Level 8.9mg/dL (8.5-10.1) Total Bilirubin 0.4mg/dL (0.0-1.2) Aspartate Amino Transf (AST/SGOT) 17U/L (0-50) Alanine Aminotransferase (ALT/SGPT) 11U/L (0-32) Alkaline Phosphatase 58U/L (25-165) Total Protein 5.7g/dL (6.4-8.4) Albumin 3.4g/dL (3.4-5.0) Hemoglobin 7.9g/dL (12.0-15.6) Hematocrit 27.6% (35.0-46.0) Discharge Medications Discharge Medications Cholecalciferol (Vitamin D3) (Vitamin D3) 2,000 Unit Tablet 2,000 UNIT PO QAM ( Reported) Mv,Ca,Min/FA/Herbal Comp #223 (Estroven Mood & Memory Caplet) 400 Mcg Tablet 400 MCG PO QAM (Reported) [place]-3/Dha/Epa/Fish Oil (Fish Oil 1,000 mg Softgel) 1 Each Capsule 1 EACH PO QAM (Reported) Pantoprazole (Pantoprazole DR) 40 Mg Tablet. 40 MG PO BIDAC Prescribed by: Jacqui AYERS Sucralfate (Carafate) 1 Gm Tablet 1,000 MG PO Q6 Prescribed by: Jacqui AYERS As needed Loratadine (Claritin) 10 Mg Capsule 10 MG PO DAILY PRN PRN ALLERGIES (Reported) Followup Plan Disposition: Patient will be discharged to home in stable condition. Follow-up plan You will follow up at the GI clinic 2 weeks after discharge. You will likely get a repeat endoscopy in about 2 months. In addition, you will get a Repeat colonoscopy in 5 years. Follow-up with your PCP in 2 weeks. Discharge Diet: No restrictions Discharge Activity: No restrictions Patient Instructions You presented to the hospital per recommendations of your primary care doctor because you were found to have low hemoglobin/ hematocrit. You denied any symptoms of bleeding but have noticed that when you eat or drink certain foods, you experience abdominal pain. Because your hemoglobin was low at 5.2 when you presented, you were transfused 3 units of blood. We consulted gastroenterology , Dr. Chung, who did an endoscopy and colonoscopy. He found that there was a 1.5 cm deep cratered ulcer with surrounding inflammation on the fundus body junction of the stomach, which is the likely source of your bleed, causing anemia. He also found a Hiatal hernia, Ascending Colon Polyp 1 that was completely removed and Hemorrhoids. He also took samples during the endoscopy to check and see if there is anything concerning with the pathology or if there is any bacteria that may be causing the ulcers. We should find out more about those results in the coming week. He suggested that we give Protonix 40 mg by mouth twice a day, which you will continue when you are discharged. Protonix, otherwise known as pantoprazole is a proton pump inhibitor that decreases the amount of acid produced in the stomach. He also suggested that we give Cerafate 1 gram 4 times a day. Cerafate, otherwise known as sucralfate, is a medicine that forms a coating over ulcers to protect the area from further injury.Throughout your hospital stay, we monitored your blood counts, Hemoglobin and Hematocrit. They remained stable overnight until discharge. At home, you will continue to take Protonix 40 mg twice a day and Cerafate 1 g by mouth, 4 times daily. You will follow up at the GI clinic 2 weeks after discharge. You will likely get a repeat endoscopy in about 2 months. In addition , you will get a Repeat colonoscopy in [address] Chung, here are some Recommendations for your acid reflux: - Avoid fatty, acidic, spicy, large meals - Do not lie down after meals - Do not eat or drink anything for at least 2 1/2 hours before going to bed at night - Discontinue tobacco and alcohol - Decrease or avoid caffeine - Avoid chocolate and mints - Decrease weight - Avoid Aspirin Non steroidal anti-inflammatory agents (NSAID) such as Aleve, Advil, Mobic, Naproxen, Ibuprofen, etc Follow-up Provider: Carlitos Chung MD Follow-up with PCP in: 2 weeks Provider: Rachana Bolden PA-C Follow-up in: 2 weeks Time spent Greater than 30 minutes was spent in preparation of discharge with greater than 50% of that time dedicated to patient counseling and coordination of care. . Attending Statement The patient was seen and examined together with Dr. Roach on 11/13/2016 and I agree with the history, exam and plan as outlined in the note above. . copies to: Carlitos Chung MD; Rachana Bolden PA-C, Alexa N DO Nov 13, 2016 12:57 Vega Vang MD Nov 13, 2016 17:18
--- NOTE | 2016-11-13 13:56 | NUR ---
Social Work: Discharge D: EMR reviewed. Pt is on day 2 of hospitalization. Pt discussed in morning rounds and is medically stable for discharge home today. No SW needs identified, no MD orders received. A: Pt who is independent at baseline P: Pt to discharge home today via POV. No discharge needs identified, no MD orders received. SARABJIT Lui
--- NOTE | 2016-11-13 14:02 | NUR ---
Discharge Pt discharged to home with transportation by a friend. Pt's IV's dc'd intact. Telemetry removed and tech notified. Pt's discharge instructions, new medications and follow up appointments were reviewed. All questions were answered and pt voiced understanding. All belongings were gathered for transportation home with pt. Pt was escorted to hospital entrance by this RN.
--- NOTE | 2016-11-16 17:13 | PATH ---
SURGICAL PATHOLOGY Attending Physician:Carlitos Chung M.D. CASE STATUS: Signed Out PATIENT NAME: SHAN BENJAMIN PID: [id number] : 1955 DATE COLLECTED:11/12/2016 00:00 SPECIMEN: 1: Stomach, Biopsy 2: Colon, Polyp CLINICAL HISTORY: 1). FUNDAL ULCER - RULE OUT H PYLORI 2). ASCENDING POLYP FINAL DIAGNOSIS: 1. Fundal Ulcer, Biopsy: Gastric antral-type mucosa with hyperplastic features. No evidence of Helicobacter organism on H&E stain. Negative for intestinal metaplasia, dysplasia or malignancy. 2. Ascending Colon Polyp, Polypectomy: Sessile serrated adenoma. ICD10: D12.2 GROSS DESCRIPTION: Received two formalin-filled containers, each labeled with the patient's name. 1. Received in formalin, labeled with the patient's name and "fundal ulcer R/O H. pylori" are two fragments of gates soft tissue ranging from 0.2 x 0.1 x 0.1 cm to 0.3 x 0.1 x 0.1 cm. The fragments are totally submitted in cassette 1A. 2. Received in formalin, labeled with the patient's name and "ascending polyp" are four fragments of gates soft tissue ranging from 0.3 x 0.1 x 0.1 cm to 0.5 x 0.2 x 0.1 cm. The fragments are totally submitted in cassette 2A. ([id number]) ICD-9 CODES: CPT CODES: 1: 89704 2: 71640 Electronically Signed Out Catracho Schreiber MD, Ph.D. [facility] Pathology [facility] [address], [place] [address] Technical component performed at [facility], [facility] [address], [place], [address]
== END 2016-11-13 13:30 | disposition home or self-care (01) | DRG 378 ==
LOC: SED 14:53 → PCC 19:05
PROVIDERS: ADMIT Internal Medicine; ATTEND Internal Medicine
PROC: 30233N1 Transfusion of Nonautologous Red Blood Cells into Peripheral Vein, Percutaneous Approach (ICD-10-PCS; 2016-11-11)
PROC: 0DB68ZX Excision of Stomach, Via Natural or Artificial Opening Endoscopic, Diagnostic (ICD-10-PCS; principal; 2016-11-12 13:00)
PROC: 0DBK8ZX Excision of Ascending Colon, Via Natural or Artificial Opening Endoscopic, Diagnostic (ICD-10-PCS; 2016-11-12 13:00)
PROC: 30233N1 Transfusion of Nonautologous Red Blood Cells into Peripheral Vein, Percutaneous Approach (ICD-10-PCS; 2016-11-12 13:00)
DX: K25.0 Acute gastric ulcer with hemorrhage (principal); D62 Acute posthemorrhagic anemia; M54.9 Dorsalgia, unspecified; K44.9 Diaphragmatic hernia without obstruction or gangrene; D12.2 Benign neoplasm of ascending colon; K64.8 Other hemorrhoids; Z88.0 Allergy status to penicillin; Z79.1 Long term (current) use of non-steroidal anti-inflammatories (NSAID)